=== PATIENT | male | born 1985 | race Caucasian/White ===

== ENCOUNTER 2016-08-30 14:29 | Emergency (ER) | payer SELFPAY ==
[~2016-08-30] VITALS: Ht 185.4 cm; Wt 149.5 kg
[~2016-08-30 14:29] MED LIST: AMOXICILLIN500 MG PO; ATARAX,VISTARIL50 MG PO; BENADRYL50 MG PO; FLONASE16 G1 BOTH NARES; NAPROSYN500 MG PO; NOHOMEMEDS; PREDNISONE20 MG PO; VICODIN 5-3001 EACH PO; XANAX0.5 MG PO; ZITHROMAX Z-PA250 MG PO; ZYRTEC10 M2 PO
[2016-08-30 16:00] VITALS: BP 111/61
[2016-08-30] MEDS ORDERED: XANAX2 MG PO (16:00)
== END 2016-08-30 17:33 | disposition left against medical advice (07) ==
LOC: EME 14:29
DX: R06.02 Shortness of breath (principal); Z53.21 Procedure and treatment not carried out due to patient leaving prior to being seen by health care provider

== ENCOUNTER 2016-09-30 20:27 | Emergency (ER) | payer OTHER ==
[~2016-09-30] VITALS: Ht 182.9 cm; Wt 151.9 kg
[~2016-09-30 20:27] MED LIST changes: +XANAX2 MG PO
[2016-09-30 21:42] LABS: HEMATOCRIT 39.4 % (38.0-50.0); MCH 19.8 PG (29.0-34.0); MCHC 33.2 G/DL (30.0-36.0); MCV 59.4 FL (86-99); MEAN PLAT.VOLUME 10.2 uM^3 (9.0-12.4); PLATELET COUNT 378 K/uL (156-360); RBC DIS.WIDTH-CV 18.6 % (11.8-14.6); RBC DIS.WIDTH-SD 35.9 % (39-53); RED BLOOD COUNT 6.63 M/uL (4.00-5.50); WHITE BLOOD COUNT 10.5 K/uL (4.1-10.2)
[2016-09-30 22:07] LABS: CHLORIDE 108 mEq/L (99-109); SODIUM 137 mEq/L (136-147)
[2016-09-30 22:08] LABS: GLUCOSE 106 mg/dL (70-99)
[2016-09-30 22:09] LABS: TROP-I INTERPRETATION NEGATIVE; TROPONIN-I < 0.01 ng/mL (0.0-0.30)
[2016-09-30 22:10] LABS: ANION GAP 11 MEQ/L (2-14)
[2016-09-30 22:12] LABS: GFR ESTIMATE (CALCULATED) > 59 mL/min/
[2016-09-30 22:13] LABS: UREA NITROGEN (BUN) 9 mg/dL (9-23)
[2016-09-30 23:28] LABS: TROP-I INTERPRETATION NEGATIVE; TROPONIN-I < 0.01 ng/mL (0.0-0.30)
[2016-09-30 23:46] LABS: SERUM ETHYL ALCOHOL < 10 mg/dL
[2016-09-30 23:50] LABS: D-DIMER ELISA 0.21 mg/L FEU (< 0.57)
[2016-10-01] MEDS ORDERED: NAPROSYN500 MG PO (00:49)
[2016-10-01] MEDS ORDERED: BENTYL20 MG PO (00:49)
[2016-10-01 01:09] LABS: TOTAL BILIRUBIN 0.3 mg/dL (0.0-1.0)
[2016-10-01 01:10] LABS: ALKALINE PHOSPHATASE 86 IU/L (3-129)
[2016-10-01 01:13] LABS: DIRECT BILIRUBIN 0.2 mg/dL (0.0-0.3)
[2016-10-01 01:14] LABS: LIPASE 22 U/L (1.0-51.0)
[2016-10-01 01:45] LABS: ADD MIUA? NO; BILIRUBIN NEGATIVE; BLOOD NEGATIVE; COLOR YELLOW ((YELLOW)); GLUCOSE (STRIP) NEGATIVE; KETONES NEGATIVE; LEUKOCYTES NEGATIVE; NITRITE NEGATIVE; PROTEIN (STRIP) NEGATIVE; UCUL ADDED? NO; UROBILINOGEN 0.2 MG/DL (0.2-1.0)
[2016-10-01 02:15] VITALS: BP 136/91
== END 2016-10-01 02:15 | disposition home or self-care (01) ==
LOC: EME 20:27
PROVIDERS: Emergency Medicine
DX: E86.0 Dehydration (principal); R07.89 Other chest pain; T43.296A Underdosing of other antidepressants, initial encounter; Z91.128 Patient's intentional underdosing of medication regimen for other reason; F17.200 Nicotine dependence, unspecified, uncomplicated
CPT/HCPCS: 71020; 74177; 80048; 80076; 81003; 83690; 84484; 85027; 85379; 93005; 99281; 99285; G0480; J1885; J7030; S0028

== ENCOUNTER 2017-06-11 19:03 | Emergency (ER) | payer OTHER ==
[~2017-06-11] VITALS: Ht 182.9 cm; Wt 155.5 kg
[~2017-06-11 19:03] MED LIST changes: +BENTYL20 MG PO
[2017-06-11 19:39] LABS: ADD MIUA? NO; BILIRUBIN NEGATIVE; BLOOD NEGATIVE; COLOR YELLOW ((YELLOW)); GLUCOSE (STRIP) NEGATIVE; KETONES NEGATIVE; LEUKOCYTES NEGATIVE; NITRITE NEGATIVE; PROTEIN (STRIP) NEGATIVE; UCUL ADDED? NO; UROBILINOGEN 0.2 MG/DL (0.2-1.0)
[2017-06-11 19:55] LABS: HEMATOCRIT 43.1 % (38.0-50.0); MCH 19.1 PG (29.0-34.0); MCHC 30.9 G/DL (30.0-36.0); MEAN PLAT.VOLUME 10.1 uM^3 (9.0-12.4); PLATELET COUNT 345 K/uL (156-360); RBC DIS.WIDTH-CV 17.6 % (11.8-14.6); RED BLOOD COUNT 6.95 M/uL (4.00-5.50); WHITE BLOOD COUNT 12.3 K/uL (4.1-10.2)
[2017-06-11 20:08] LABS: CHLORIDE 108 mEq/L (99-109); POTASSIUM 3.8 mEq/L (3.7-5.4); SODIUM 139 mEq/L (136-147)
[2017-06-11 20:10] LABS: GLUCOSE 98 mg/dL (70-99)
[2017-06-11 20:11] LABS: ANION GAP 10 MEQ/L (2-14)
[2017-06-11 20:12] LABS: TOTAL BILIRUBIN 0.4 mg/dL (0.0-1.0)
[2017-06-11 20:13] LABS: ALKALINE PHOSPHATASE 94 IU/L (3-129)
[2017-06-11 20:14] LABS: GFR ESTIMATE (CALCULATED) > 59 mL/min/
[2017-06-11 20:15] LABS: UREA NITROGEN (BUN) 8 mg/dL (9-23)
[2017-06-11 22:08] LABS: EOSINOPHIL COUNT 0.2 K/uL (0-0.3); IMMATURE GRANULOCYTE (%) 0.4 % (0.0-0.7); IMMATURE GRANULOCYTE COUNT 0.1 K/uL; LYMPHOCYTE COUNT 2.8 K/uL (1.0-2.8); MONOCYTE COUNT 1.2 K/uL (0-0.8); NEUTROPHIL (%) 64.8 % (45-76)
[2017-06-11 22:18] LABS: LIPASE 34 U/L (1.0-51.0)
[2017-06-12] MEDS ORDERED: BENTYL20 MG PO (00:08)
[2017-06-12] MEDS ORDERED: ZANTAC300 MG PO (00:08)
[2017-06-12] MEDS ORDERED: REGLAN10 MG PO (00:08)
[2017-06-12 00:29] VITALS: BP 134/87
== END 2017-06-12 00:29 | disposition home or self-care (01) ==
LOC: EME 19:03
DX: R10.9 Unspecified abdominal pain (principal); R11.0 Nausea; R14.0 Abdominal distension (gaseous); R19.7 Diarrhea, unspecified; K42.9 Umbilical hernia without obstruction or gangrene; Z72.0 Tobacco use
CPT/HCPCS: 74020; 74176; 80053; 81003; 83690; 85025; 85027; 99281; 99284

== ENCOUNTER 2018-01-06 11:29 | Emergency (ER) | payer OTHER ==
[~2018-01-06] VITALS: Ht 182.9 cm; Wt 162.1 kg
[~2018-01-06 11:29] MED LIST changes: +REGLAN10 MG PO; +ZANTAC300 MG PO
[2018-01-06] MEDS ORDERED: FLEXERIL10 MG PO (13:42)
[2018-01-06] MEDS ORDERED: LIDODERM 5% P1 PATCH TD (13:42)
[2018-01-06] MEDS ORDERED: ULTRAM50 MG PO (13:42)
[2018-01-06 14:00] VITALS: BP 113/88
== END 2018-01-06 14:02 | disposition home or self-care (01) ==
LOC: EME 11:29
DX: S39.012A Strain of muscle, fascia and tendon of lower back, initial encounter (principal); M54.42 Lumbago with sciatica, left side; S93.401A Sprain of unspecified ligament of right ankle, initial encounter; R39.15 Urgency of urination; W18.40XA Slipping, tripping and stumbling without falling, unspecified, initial encounter; Y99.0 Civilian activity done for income or pay; Z72.0 Tobacco use
CPT/HCPCS: 72100; 73610; 99281; 99284; J1885

== ENCOUNTER 2018-04-04 01:59 | Emergency (ER) | payer OTHER ==
[~2018-04-04] VITALS: Ht 182.9 cm; Wt 165.4 kg
[~2018-04-04 01:59] MED LIST changes: +FLEXERIL10 MG PO; +LIDODERM 5% P1 PATCH TD; +ULTRAM50 MG PO
[2018-04-04 02:48] LABS: HEMATOCRIT 41.3 % (38.0-50.0); MCH 19.4 PG (29.0-34.0); MCHC 31.5 G/DL (30.0-36.0); MCV 61.7 FL (86-99); PLATELET COUNT 340 K/uL (156-360); RBC DIS.WIDTH-CV 18.6 % (11.8-14.6); RBC DIS.WIDTH-SD 34.7 % (39-53); RED BLOOD COUNT 6.69 M/uL (4.00-5.50); WHITE BLOOD COUNT 11.5 K/uL (4.1-10.2)
[2018-04-04 02:51] LABS: CHLORIDE 103 mEq/L (99-109); POTASSIUM 3.7 mEq/L (3.7-5.4); SODIUM 138 mEq/L (136-147)
[2018-04-04 02:53] LABS: GLUCOSE 157 mg/dL (70-99)
[2018-04-04 02:57] LABS: CREATININE 1.1 mg/dL (0.6-1.3); GFR ESTIMATE (CALCULATED) > 59 mL/min/ (58.99-99999)
[2018-04-04 02:58] LABS: UREA NITROGEN (BUN) 15 mg/dL (9-23)
[2018-04-04 03:00] LABS: D-DIMER ELISA < 150.00 ng/mLDDU (<230)
[2018-04-04 03:03] LABS: TROP-I INTERPRETATION NEGATIVE; TROPONIN-I < 0.01 ng/mL (0.0-0.30)
[2018-04-04] MEDS ORDERED: ZITHROMAX Z-PA250 MG PO (03:40)
[2018-04-04 03:57] VITALS: BP 121/70
== END 2018-04-04 04:08 | disposition home or self-care (01) ==
LOC: EME 01:59
PROVIDERS: Emergency Medicine
DX: J20.9 Acute bronchitis, unspecified (principal); F41.9 Anxiety disorder, unspecified; R00.0 Tachycardia, unspecified; J45.909 Unspecified asthma, uncomplicated; F32.9 Major depressive disorder, single episode, unspecified; F17.200 Nicotine dependence, unspecified, uncomplicated; Z88.0 Allergy status to penicillin; Z91.040 Latex allergy status
CPT/HCPCS: 71046; 80048; 83605; 84484; 85027; 85379; 93005; 99281; 99284; J7030